=== PATIENT | male | born 1970 | race Caucasian/White ===

== ENCOUNTER 2017-08-29 18:47 | Emergency (ER) | payer BC, OTHER ==
[2017-08-29] MEDS ORDERED: Gentamicin 0.3% Ophth Soln 5 ML Bottle EYEBOTH ONE (18:48)
[2017-08-29] MEDS ORDERED: Fluorescein 1 MG Ophth Strip EYERT ONE (19:40)
[2017-08-29] MEDS ORDERED: Tetracaine HCl/PF 0.5% 4 ML Bottle EYERT ONE (19:40)
[2017-08-29] MEDS ORDERED: Gentamicin 0.3% Ophth Soln 5 ML Bottle ONE (19:57)
--- NOTE | 2017-08-29 19:59 | EDM.PDOC ---
ED HPI GENERAL MEDICAL PROBLEM - General Chief Complaint: Eye Problems Stated Complaint: SOMETHING IN EYE [id number] Time Seen by Provider: 08/29/17 19:45 Source of Information: Reports: Patient History Limitations: Reports: No Limitations - History of Present Illness INITIAL COMMENTS - FREE TEXT/NARRATIVE: This 47 yo male patient reports to the ED due to getting something in his right eye. The patient reports he was working on the house and at about 1400 today got something in his right eye. The patient reports that he attempted to come to the ED at that time, but it was too busy. When the eye continued to bother him, the patient reported to the ED. Onset: Today Onset Date: 08/29/17 Onset Time: 14:00 Duration: Constant Location: Reports: Head (right eye) Quality: Reports: Ache, Sharp Severity: Moderate Improves with: Reports: None Worsens with: Reports: None Associated Symptoms: Reports: No Other Symptoms - Related Data Allergies Allergy/AdvReac Type Severity Reaction Status Date / Time No Known Allergies Allergy Verified 08/29/17 19:31 Home Meds: Home Meds DULoxetine HCl [Duloxetine HCl] 1 tab PO DAILY 08/29/17 [History] buPROPion [buPROPion XL] 1 tab PO DAILY 08/29/17 [History] Past Medical History - Past Health History Medical/Surgical History: Denies Medical/Surgical History Psychiatric History: Reports: Anxiety Social & Family History - Caffeine Use Caffeine Use: Reports: Soda - Recreational Drug Use Recreational Drug Use: No ED ROS GENERAL - Review of Systems Review Of Systems: ROS reveals no pertinent complaints other than HPI. ED EXAM GENERAL W FULL EYE - Physical Exam Exam: See Below Exam Limited By: No Limitations General Appearance: Alert, WD/WN, Moderate Distress Eye Exam: Right Eye: Other (Right eye erythema), Bilateral Eye: EOMI, PERRL Eyelids: Right: Erythema, Foreign Body (upper eyelid) Conjunctiva & Sclera: Right: Foreign Body, Scleral Icterus Cornea Exam: Right: Corneal Abrasion Pupils: Normal Accommodation Pupillary Reaction: Bilateral: Brisk Anterior Chamber: Bilateral: Normal Appearance Posterior Chamber: Bilateral: Normal Funduscopic Ears: Normal External Exam, Normal Canal, Hearing Grossly Normal, Normal TMs Nose: Normal Inspection, Normal Mucosa, No Blood Throat/Mouth: Normal Inspection, Normal Lips, Normal Teeth, Normal Gums, Normal Oropharynx, Normal Voice, No Airway Compromise Head: Atraumatic, Normocephalic Neck: Normal Inspection, Supple, Non-Tender, Full Range of Motion Respiratory/Chest: No Respiratory Distress, Lungs Clear, Normal Breath Sounds, No Accessory Muscle Use, Chest Non-Tender Cardiovascular: Normal Peripheral Pulses, Regular Rate, Rhythm, No Edema, No Gallop, No JVD, No Murmur, No Rub GI/Abdominal: Normal Bowel Sounds, Soft, Non-Tender, No Organomegaly, No Distention, No Abnormal Bruit, No Mass (Male) Exam: Deferred Rectal (Males) Exam: Deferred Back Exam: Normal Inspection, Full Range of Motion, NT Extremities: Normal Inspection, Normal Range of Motion, Non-Tender, Normal Capillary Refill, No Pedal Edema Neurological: Alert, Oriented, CN II-XII Intact, Normal Cognition, Normal Gait, Normal Reflexes, No Motor/Sensory Deficits Psychiatric: Normal Affect, Normal Mood Skin Exam: Warm, Dry, Intact, Normal Color, No Rash Lymphatic: No Adenopathy Course - Vital Signs Last Recorded V/S: Last Vital Signs Temp 37.0 C 08/29/17 19:37 Pulse 95 08/29/17 19:37 Resp 16 08/29/17 19:37 BP 128/84 08/29/17 19:37 Pulse Ox 98 08/29/17 19:37 - Orders/Labs/Meds Meds: Medications Discontinued Medications Generic Name Dose Route Start Last Admin Trade Name Freq PRN Reason Stop Dose Admin Fluorescein Sodium 1 mg 08/29/17 19:40 Ful-Amanda EYERT 08/29/17 19:41 ONETIME ONE Tetracaine HCl 1 ml 08/29/17 19:40 Tetracaine 0.5% Steri-Unit Karen EYERT 08/29/17 19:41 ASDIRECTED ONE Departure - Departure Time of Disposition: 19:56 Disposition: Home, Self-Care 01 Condition: Fair Clinical Impression: Foreign body, eye Qualifiers: Encounter type: initial encounter Laterality: right Qualified Code(s): T15.91XA - Foreign body on external eye, part unspecified, right eye, initial encounter - Discharge Information Instructions: Eye Foreign Body, [id number] Forms: ED Department Discharge Care Plan Goals: The patient was advised of the examination results during the visit. The foreign body was removed without incident. The patient does have a corneal abrasion over the pupil. The patient was discharged with Gentimicin Ophthalmic Solution 0.3% to place 1-2 drops in the affected eye 4 times per day for 10 days. If the patient has any additional symptoms or concerns, the patient should follow-up with his primary care facility or return to the emergency department.
== END 2017-08-29 20:05 | disposition home or self-care (01) ==
LOC: DL.ED 18:47
DX: T15.91XA Foreign body on external eye, part unspecified, right eye, initial encounter (principal)
CPT/HCPCS: 99283; A9270

== ENCOUNTER 2022-06-13 10:30 | Emergency (ER) | payer OTHER ==
[2022-06-13] MEDS ORDERED: Lidocaine 1% 30 ML SDV ONE (10:41)
[2022-06-13] MEDS ORDERED: Lidocaine 1% 5 ML VIAL INJECT ONE (10:43)
[2022-06-13] MEDS ORDERED: Diphtheria,Pertussis(Acell),Tetanus Vaccine 0.5 ML Syringe IM ONE (10:50)
[2022-06-13] MEDS ORDERED: Bacitracin Oint 1 GM U/D Packet TOP ONE (10:51)
== END 2022-06-13 11:07 | disposition home or self-care (01) ==
LOC: DL.ED 10:30
DX: S71.112A Laceration without foreign body, left thigh, initial encounter (principal); Z86.16 Personal history of COVID-19; Z23 Encounter for immunization; W26.0XXA Contact with knife, initial encounter
CPT/HCPCS: 12002; 90471; 90715; 99282; 99283; A9270; J3490